=== PATIENT | male | born 1960 | race Caucasian/White ===

== ENCOUNTER → 2016-09-05 | Outpatient (CLI) | payer OTHER ==
[~2016-09-05] MED LIST: CLONAZEPAM0.5 MG PO; DULERA 100 MCG8.8 GM PO; NEURONTIN 400400 MG PO; VENTOLIN HFA 66.7 GM INH
[2016-09-05 08:57] LABS: HEMOGLOBIN 17.1 gm/dl (14.0-17.5); RED BLOOD COUNT 5.08 M/UL (4.20-5.50); WHITE BLOOD COUNT 8.9 K/UL (4.5-11.0)
== END ==
LOC: CT 08:00
PROVIDERS: Internal Medicine Pulmonary Disease
DX: R22.2 Localized swelling, mass and lump, trunk (principal); R91.1 Solitary pulmonary nodule
CPT/HCPCS: 71250; 85025; 85610